=== PATIENT | female | born 1945 | race Caucasian/White ===

== ENCOUNTER 2023-06-07 11:37 | Outpatient (REF) | payer MEDICARE, SELFPAY ==
[2023-06-07 21:25] LABS: ALT 29 U/L (14-59); AST 26 U/L (15-37); Albumin 3.7 g/dL (3.4-5.0); Alkaline Phosphatase 78 U/L (46-116); Anion Gap 8.3 mmol/L (3-11); BUN 14 mg/dL (7-18); Bilirubin, Total 0.5 mg/dL (0.2-1.0); CO2 26.7 mmol/L (21.0-32.0); CREATININE 0.8 mg/dL (0.55-1.02); Calcium 9.8 mg/dL (8.5-10.1); Calculated LDL 85 mg/dL (<100); Chloride 103 mmol/L (98-107); Cholesterol 161 mg/dL (<200); Estimated GFR 76.31 (mL/min/1.73m2); Glucose 160 mg/dL (74-106); HDL Cholesterol 50 mg/dL (40-60); Potassium 4.6 mmol/L (3.5-5.1); Sodium 138 mmol/L (136-145); Total Protein 7.3 g/dL (6.4-8.2); Triglyceride 131 mg/dL (<150)
== END 2023-06-07 11:38 | disposition home or self-care (01) ==
LOC: NCHCN 11:37
PROVIDERS: Visit Provider Family Medicine
DX: E11.9 Type 2 diabetes mellitus without complications (principal)
CPT/HCPCS: 80053; 80061

== ENCOUNTER 2023-11-03 15:27 | Outpatient (REF) | payer MEDICARE, SELFPAY ==
[2023-11-03 21:48] LABS: Anion Gap 8.5 mmol/L (3-11); BUN 16 mg/dL (7-18); CO2 27.5 mmol/L (21.0-32.0); CREATININE 0.8 mg/dL (0.55-1.02); Calcium 9.5 mg/dL (8.5-10.1); Chloride 103 mmol/L (98-107); Estimated GFR 76.31 (mL/min/1.73m2); Glucose 253 mg/dL (74-106); Potassium 4.1 mmol/L (3.5-5.1); Sodium 139 mmol/L (136-145); TSH (W/Ref FT4) 1.67 uIU/mL (0.36-3.74)
[2023-11-03 22:02] LABS: Vitamin D 25 Total 11.6 ng/mL (30-100)
== END 2023-11-03 15:28 | disposition home or self-care (01) ==
LOC: NCHCN 15:27
PROVIDERS: Visit Provider Family Medicine
DX: I10 Essential (primary) hypertension (principal); R25.1 Tremor, unspecified; M81.0 Age-related osteoporosis without current pathological fracture
CPT/HCPCS: 80048; 82306; 84443

== ENCOUNTER 2024-02-05 15:51 | Outpatient (REF) | payer MEDICARE, MEDICAID, SELFPAY ==
[2024-02-05 21:42] LABS: Vitamin D 25 Total 41.2 ng/mL (30-100)
[2024-02-07 11:39] LABS: BUN 14 mg/dL (7-18); Calcium 9.1 mg/dL (8.5-10.1); Chloride 105 mmol/L (98-107); Estimated GFR 58.39 (mL/min/1.73m2); Glucose 149 mg/dL (74-106); Potassium 3.6 mmol/L (3.5-5.1); Sodium 142 mmol/L (136-145)
== END 2024-02-05 15:52 | disposition home or self-care (01) ==
LOC: NCHCN 15:51
PROVIDERS: Visit Provider Family Medicine
DX: E55.9 Vitamin D deficiency, unspecified (principal)
CPT/HCPCS: 80048; 82306

== ENCOUNTER 2024-04-19 21:22 | Outpatient (REF) | payer MEDICARE, MEDICAID, SELFPAY ==
[2024-04-19 22:55] LABS: Bacteria Many HPF (Negative); C & S Indicated? C&S Done As Ordered; Casts 0-2 Hyaline LPF (Negative); Crystals Negative HPF (Negative); Epithelial Cells Rare HPF (Negative); Mucus Negative (Negative); RBC 0-2 HPF (0-2); WBC >50 HPF (0-5)
== END 2024-04-19 21:23 | disposition home or self-care (01) ==
LOC: LBN 21:22
PROVIDERS: Visit Provider Physician Assistant Medical
DX: N39.0 Urinary tract infection, site not specified (principal); B96.29 Other Escherichia coli [E. coli] as the cause of diseases classified elsewhere; R82.89 Other abnormal findings on cytological and histological examination of urine
CPT/HCPCS: 87077; 81015; 87086; 87186; 87480; 87510; 87660

== ENCOUNTER 2024-05-06 20:35 | Outpatient (REF) | payer MEDICARE, MEDICAID, SELFPAY ==
[2024-05-06 16:01] LABS: Abs Immature Grans 0.04 10^3/uL (0.0-0.06); Absolute Basophil Count 0.03 10^3/uL (0.0-0.2); Absolute Eosinophil Count 0.15 10^3/uL (0.0-0.7); Absolute Lymphocyte Count 2.02 10^3/uL (1.2-3.4); Absolute Monocyte Count 0.62 10^3/uL (0.1-0.8); Absolute Neutrophil Count 5.35 10^3/uL (1.2-6.7); Basophils % 0.4 %; Eosinophils % 1.8 %; HCT 40.5 % (36.0-46.0); HGB 13.2 g/dL (11.2-15.7); Immature Grans % 0.5 %; Lymphocytes % 24.6 %; MCH 29.5 pg (27.0-33.0); MCHC 32.6 % (32.0-36.0); MCV 91 fL (80-95); MPV 10.7 fL (8.0-11.0); Monocytes % 7.6 %; Neutrophils % 65.1 %; Platelet Count 152 10^3/uL (130-400); RBC 4.47 10^6/uL (3.93-5.22); RDW-SD 42.5 fL; WBC 8.21 10^3/uL (4.4-10.8)
[2024-05-06 16:16] LABS: ALT 21 U/L (14-59); AST 17 U/L (15-37); Albumin 3.6 g/dL (3.4-5.0); Alkaline Phosphatase 82 U/L (46-116); BUN 11 mg/dL (7-18); Bilirubin, Total 0.65 mg/dL (0.2-1.0); C-Reactive Protein 0.78 mg/dL (<or=0.5); CREATININE 0.8 mg/dL (0.55-1.02); Calcium 9.2 mg/dL (8.5-10.1); Chloride 104 mmol/L (98-107); Estimated GFR 76.31 (mL/min/1.73m2); Glucose 251 mg/dL (74-106); Potassium 4.3 mmol/L (3.5-5.1); Sodium 140 mmol/L (136-145); Total Protein 7.1 g/dL (6.4-8.2)
== END 2024-05-06 20:36 | disposition home or self-care (01) ==
LOC: NCHCN 20:35
PROVIDERS: Visit Provider Family Medicine
DX: N39.0 Urinary tract infection, site not specified (principal); B96.29 Other Escherichia coli [E. coli] as the cause of diseases classified elsewhere
CPT/HCPCS: 80053; 87077; 85025; 86140; 87086; 87186

== ENCOUNTER 2024-05-21 17:13 | Outpatient (REF) | payer MEDICARE, MEDICAID, SELFPAY | END 2024-05-21 17:14 | disposition home or self-care (01) | LOC: NCHCN 17:13 | PROVIDERS: Visit Provider Family Medicine | DX: N39.0 Urinary tract infection, site not specified (principal); R82.89 Other abnormal findings on cytological and histological examination of urine | CPT/HCPCS: 87086 ==

== ENCOUNTER 2024-06-06 21:18 | Outpatient (REF) | payer MEDICARE, MEDICAID, SELFPAY | END 2024-06-06 21:19 | disposition home or self-care (01) | LOC: LBN 21:18 | PROVIDERS: Visit Provider Family Medicine | DX: N39.0 Urinary tract infection, site not specified (principal) | CPT/HCPCS: 87086 ==

== ENCOUNTER 2024-08-22 18:13 | Outpatient (REF) | payer MEDICARE, MEDICAID, SELFPAY ==
[2024-08-22 14:38] LABS: Abs Immature Grans 0.05 10^3/uL (0.0-0.06); Absolute Basophil Count 0.03 10^3/uL (0.0-0.2); Absolute Eosinophil Count 0.11 10^3/uL (0.0-0.7); Absolute Lymphocyte Count 1.35 10^3/uL (1.2-3.4); Absolute Monocyte Count 0.64 10^3/uL (0.1-0.8); Absolute Neutrophil Count 4.97 10^3/uL (1.2-6.7); Basophils % 0.4 %; Eosinophils % 1.5 %; HCT 37.3 % (36.0-46.0); HGB 12.1 g/dL (11.2-15.7); Immature Grans % 0.7 %; Lymphocytes % 18.9 %; MCH 28.7 pg (27.0-33.0); MCHC 32.4 % (32.0-36.0); MCV 89 fL (80-95); MPV 10.1 fL (8.0-11.0); Neutrophils % 69.5 %; Platelet Count 185 10^3/uL (130-400); RBC 4.21 10^6/uL (3.93-5.22); RDW 12.7 % (11.7-14.6); RDW-SD 40.9 fL; WBC 7.15 10^3/uL (4.4-10.8)
== END 2024-08-22 18:14 | disposition home or self-care (01) ==
LOC: LBN 18:13
PROVIDERS: Visit Provider Family Medicine
DX: K92.1 Melena (principal)
CPT/HCPCS: 85025